=== PATIENT | male | born 1990 | race Caucasian/White ===

== ENCOUNTER 2016-10-19 15:43 | Inpatient (IN) | payer BC, OTHER ==
[~2016-10-19] VITALS: Ht 185.4 cm; Wt 79.8 kg
[~2016-10-19 15:43] MED LIST: CLON0.1T14 PO; DICY20TA28 PO; DIPH50CA37 PO; Gabapentin PO; HYDR-3895 PO; Ibuprofen PO
[2016-10-19 21:10] VITALS: BP 134/68
--- NOTE | 2016-10-19 21:10 | NUR ---
PRE-ASSESSMENT NOTE INTAKE ASSESSMENT PATIENT ALERT AND ORIENTED X 4. RESPIRATION EVEN AND UNLABORED. PATIENT ABLE TO ANSWER QUESTIONS. CLEAR SPEECH. AMBULATORY WITH STEADY GAIT. PATIENT APPEARS TO BE NOT INTOXICATED. VS BP-97.8 P-63 T-97.8 R-15 PA-0/10. SpO2 AT 98% IN RA. PATIENT STATES HE DOES NOT HAVE ALLERGY TO FOOD OR MEDICATIONS. NO SEIZURE HISTORY. HES STATES HES HERE FOR HEROIN IV AND CRYSTAL METHAMPHETAMINE. WILL CONTINUE ADMISSION PROCESS TO HIS ASSIGNED ROOM ON 3RD FLOOR. UA PROVIDED.
--- NOTE | 2016-10-19 21:15 | NUR ---
ADMISSION NOTE RECEIVED PATIENT IN THE UNIT AT THIS TIME. PATIENT IS A 25 YEAR OLD MALE WHO PRESENTS TO [facility] FOR SUPERVISED WITHDRAWAL SYMPTOMS FOR OPIATE DEPENDENCE. HEIGHT IS 61 AND WEIGHT IS 176 LBS. BODY CHECK DONE . NOTED WITH TRACK BERRY ON BOTH ARMS. NO CONTRABAND WAS FOUND. LUNGS IS CLEAR AND BOWEL SOUNDS ACTIVE ON ALL 4 QUADRANT. ABDOMEN SOFT AND NON-DISTENDED. LAST BOWEL TODAY PRIOR TO ADMISSION. NO DIFFICULTY URINATING. PATIENT REPORTS NO PAST MEDICAL HISTORY. NO SEIZURE HISTORY. PATIENT REQUESTED TO BE FULL CODE AND ON REGULAR DIET. PATIENT STATES HES HERE BECAUSE I WANT TO STOP USING, FIND OUT IF IM BIPOLAR AND CURIOUS ABOUT DEPRESSION AND ANXIETY. PATIENT LIVES WITH HIS PARENTS AND UNEMPLOYED AT THIS TIME. LONGEST PERIOD OF SOBRIETY WAS 63 DAYS LAST JUN, 2016. PATIENT IS THE SOURCE OF INFORMATION. PATIENTS DRUG OF CHOICE ARE: 1.HEROIN IV- USING SINCE HE WAS 23 YEARS OLD. PATIENT INJECTS GRAM DAILY SINCE JUNE 2016. LAST USE WAS GRAM PRIOR TO ADMISSION 2.CRYSTAL METHAMPHETAMINE (SMOKE) -USING SINCE HE WAS 24 YEARS OLD. PATIENT STATES HES USING THIS INTERMITTENTLY UNABLE TO RECALL AMOUNT. LAST USE WAS LAST WEEK FOR UNKNOWN AMOUNT TREATMENT HISTORY: 1.[facility] JUN. 2016 FOR 63 DAYS 2.[facility] JUN 15- LAST WEEK, [id number] PATIENT APPEARS TO BE ANXIOUS . YUWA 2. DENIES SI/HI. PATIENTS PCP IS DR. BEAL. PATIENTS WITHDRAWAL SYMPTOMS WHEN NOT USING ARE RESTLESS LEGS, RUNNY NOSE, TEARY EYES AND DIFFICULTY SLEEPING. PATIENT SMOKES 1 PACK DAILY. PATIENT DOES NOT HAVE HOME MEDICATIONS. WILL CALL MD AND WILL GIVE DETAIL REPORT. PATIENT ORIENTED TO SURROUNDINGS AND HOW TO USE CALL LIGHT. PATIENT WAS PLACED ON FALL PRECAUTION. SAFETY MEASURES IN PLACE. CALL LIGHT IN REACH. WILL CONTINUE TO MONITOR.
[2016-10-19] MEDS ORDERED: LOPERAMIDE HCL 2 MG CAPSULE PO PRN ×2 (21:45)
[2016-10-19] MEDS ORDERED: DICYCLOMINE HCL 20 MG TABLET PO PRN (21:45)
[2016-10-19] MEDS ORDERED: HYDROXYZINE PAMOATE 25 MG CAPSULE PO PRN (21:45)
[2016-10-19] MEDS ORDERED: MAGNESIUM HYDROXIDE 30 ML LIQUID UDC PO PRN (21:45)
[2016-10-19] MEDS ORDERED: MAG HYDROX/AL HYDROX/SIMETH 30 ML LIQUID UDC PO PRN (21:45)
[2016-10-19] MEDS ORDERED: ACETAMINOPHEN 325 MG TABLET PO PRN (21:45)
[2016-10-19] MEDS ORDERED: IBUPROFEN 400 MG TABLET PO PRN (21:45)
[2016-10-19] MEDS ORDERED: MIRALAX 17 GM POWD.PACK PO PRN (21:45)
[2016-10-19] MEDS ORDERED: CLONIDINE HCL 0.1 MG TABLET PO PRN (21:45)
[2016-10-19] MEDS ORDERED: BUPRENORPHINE HCL 2 MG TAB.SUBL SL PRN (21:45)
[2016-10-19] MEDS ORDERED: ONDANSETRON ODT 4 MG TAB.RAPDIS SL PRN (21:45)
[2016-10-19 22:13] LABS: *AMPHETAMINE, URINE POSITIVE (NEGATIVE); *BARBITURATE, URINE NEGATIVE (NEGATIVE); *CANNABINOID, URINE NEGATIVE (NEGATIVE); *COCCAINE, URINE NEGATIVE (NEGATIVE); *OPIATE, URINE POSITIVE (NEGATIVE); *PHENCYCLIDINE SCREEN,URINE NEGATIVE (NEGATIVE)
[2016-10-19 23:07] LABS: BASOPHILS # (AUTO) 0.1 K/uL (0.0-8.0); BASOPHILS % (AUTO) 1.1 % (0.0-2.0); EOSINOPHILS # (AUTO) 0.3 K/uL (0.0-0.7); EOSINOPHILS % (AUTO) 3.3 % (0.0-7.0); HEMATOCRIT 40.3 % (40-50); HEMOGLOBIN 13.8 G/DL (14.0-18.0); LYMPHOCYTES # (AUTO) 2.8 K/UL (0.8-4.8); LYMPHOCYTES % (AUTO) 27.9 % (20.5-51.5); MEAN CORPUSCULAR HEMOGLOBIN 30.6 UUG (27.0-31.0); MEAN CORPUSCULAR HGB CONC 34 g/dL (32.0-37.0); MEAN CORPUSCULAR VOLUME 89.3 FL (82.0-92.0); MONOCYTES # (AUTO) 0.5 K/UL (0.1-1.30); MONOCYTES % (AUTO) 5.4 % (0.0-11.0); NEUTROPHILS # (AUTO) 6.3 K/UL (1.8-8.9); NEUTROPHILS % (AUTO) 62.3 % (38.5-71.5); PLATELET COUNT (AUTO) 181 K/UL (150-450); RED BLOOD CELL COUNT(AUTO) 4.51 MIL/UL (4.7-6.1)
[2016-10-19 23:18] LABS: ETHANOL < 3 MG/DL (0-0)
[2016-10-19 23:20] LABS: ALANINE AMINOTRANSFERASE 22 U/L (16-63); ALKALINE PHOSPHATASE 82 U/L (50-136); ASPARTATE AMINOTRANSFERASE 14 U/L (15-37); BILIRUBIN,TOTAL 0.2 mg/dL (0.2-1.0); CARBON DIOXIDE 28 mmol/L (21-32); CHLORIDE 103 mmol/L (98-107); CREATININE 0.9 mg/dL (0.6-1.3); GLUCOSE 110 mg/dL (74-106); MAGNESIUM 1.7 mg/dL (1.8-2.4); POTASSIUM 3.9 mmol/L (3.5-5.1); TOTAL PROTEIN, SERUM 7.9 g/dL (6.4-8.2); UREA NITROGEN, BLOOD 15 mg/dL (7-18)
[2016-10-20] VITALS: BP 113/69
[2016-10-20] MEDS ORDERED: MAGNESIUM OXIDE 400 MG TABLET PO ONE
--- NOTE | 2016-10-20 00:05 | NUR ---
MAG OXIDE ADMINISTRATION/MAGNESIUM LEVEL PATIENT'S MAGNESIUM LEVEL 1.7-REPLACED WITH MAG OXIDE.
[2016-10-20 04:00] VITALS: BP 114/61
--- NOTE | 2016-10-20 07:15 | NUR ---
END OF SHIFT NOTE PATIENT HAS AN UNEVENTFUL EVENT . PATIENT IS A 25 YEAR OLD MALE, ADMITTED FOR OPIATE DEPENDENCE. PATIENT IS FULL CODE, REGULAR DIET AND NO KNOWN ALLERGY. PATIENTS MAGNESIUM LEVEL 1.7- REPLACED WITH MAGNESIUM OXIDE. PATIENT DID NOT REQUIRE ANY PRN MEDICATION DURING SHIFT. LAST COWS 1. PATIENT WAS PLACED ON FALL PRECAUTION. SAFETY MEASURES IN PLACE. CALL LIGHT IN REACH. WILL CONTINUE TO MONITOR. PATIENT SLEPT 8 HOURS. FLUID INTAKE OF 899 ML. VOIDED X 2. NO BM.
--- NOTE | 2016-10-20 07:23 | NUR ---
Start of Shift Notes: Patient received in his room. Alert and oriented x 4. Able to make needs known. Respirations even and unlabored. No SOB noted. Skin warm and dry to touch. Abdomen soft and non-distended. BS (+) in all 4 quadrants. No complains of nausea, vomiting, diarrhea or constipation noted. No complains of abdominal discomfort noted. Voids independently. Ambulatory ad sebastien with steady gait. Patient is a 25 year old male admitted for opiate and methamphetamine dependence who was placed on PRNs only at this time. MD to reassess taper. Denies any past medical hx. NKA. Full code. Regular diet. Educated patient on his current medication regimen and his current plan of care. Encouraged oral fluid intake and encouraged group participation to learn new skills to prevent relapse. Slept for 6 hours. Last COWS 1. Will continue to monitor closely.
[2016-10-20 08:00] VITALS: BP 107/52
--- NOTE | 2016-10-20 08:12 | NUR ---
MD Communication: Notified MD of patient's BP 99/53. Patient is complaining of chills, anxiety and sweats. Per MD, ok to give Clonidine as ordered. Will monitor for effectiveness.
[2016-10-20] MEDS: METHOCARBAMOL 750 MG TABLET PO PRN (08:13)
[2016-10-20] MEDS: MULTIVITAMINS,THERAPEUTIC TABLET PO SCH (08:13)
--- NOTE | 2016-10-20 08:13 | NUR ---
PRN Clonidine 0.1mg PO and Robaxin 750 mg PO given: Patient noted with complain of chills, hot flashes, muscle aches, and restless legs. COWS 4. Medicated patient with Clonidine 0.1mg PO and Robaxin 750 mg PO as ordered. Will monitor for effectiveness.
[2016-10-20] MEDS ORDERED: TUBERCULIN,PURIF.PROT.DERIV. 5 TU/0.1 ML TEST ID ONE (09:00)
--- NOTE | 2016-10-20 09:13 | NUR ---
Re-assessment: Per patient, PRN Clonidine and Robaxin were effective in reducing muscle aches and pains and less chills, anxiety and sweats noted.
[2016-10-20 12:00] VITALS: BP 123/75
[2016-10-20] MEDS: GABAPENTIN 300 MG CAPSULE PO SCH ×2 (14:04→21:11)
--- NOTE | 2016-10-20 14:04 | NUR ---
Subutex 4 mg SL given: COWS 12. Patient noted with frequent body shifting, facial flushing, elevated pulse, muscle aches and cold sweats and fatigue. Medicated patient with Subutex 4 mg SL from PRN as ordered. Will monitor for effectiveness.
--- NOTE | 2016-10-20 14:15 | NUR ---
Therapist advised client of group times. Client stated he attended morning group and will also attend afternoon group.
--- NOTE | 2016-10-20 14:34 | NUR ---
Re-assessment: COWS 7. Less flushing, hot flashes, restless legs, muscle cramps, chills and anxiety noted. PRN Subutex was effective in reducing patient's withdrawal symptoms.
[2016-10-20 16:00] VITALS: BP 117/66
--- NOTE | 2016-10-20 18:44 | NUR ---
START OF SHIFT NOTE Patient endorsed by day shift nurse. Report received. Patient is a 25 year old male admitted on 10/19/2016 to [facility] for Opioid and Meth Dependence. Patient Placed on 3 day Subutex Taper will started on 10/21/2016, which tolerated well. Patient reports NKA, is on Regular Diet, is on Full Code, placed on Fall Precautions. PMH: Anxiety, Depression, Substance Abuse, Tobacco Dependence, Insomnia. Last COWS 7 at 1600. VS remains stable. No acute events noted. Respirations is even and unlabored. Patient denies SOB and chest pain. Lungs are clear thoroughly. Abdomen is soft and non-tender. Bowel Sounds is active in all four quadrants. Last Bowel Movement was today on "10/20/2016@ 1700". Skin is intact, warm and dry to touch. Patient remains compliant for therapy, medications, and diet regimen. Encourage to attend group activities. Encourage fluids intake as tolerated. All needs met. Safety measures in the place. Call light within reach, bed is locked and in the lowest position, bed rails up x2. Will to continue to monitor closely. Addendum: 10/21/16 at 0334 by TUNDE CRABTREE RN Ordered 3 day Subutex Taper will started on 10/21/2016.
--- NOTE | 2016-10-20 18:44 | NUR ---
End of Shift Notes: Patient is a 25 year old male admitted for opiate and methamphetamine dependence who was placed on PRNs at this time. Prior to admission, patient was using 1/2 gram of Heroin and intermittent use of Crystal Meth since June 2016. VS monitored closely. No significant abnormalities noted. Withdrawal symptoms were closely monitored. Initial COWS 4 - patient presented with anxiety, restless legs, muscle cramps, chills, sweats and hot flashes. Subutex 4 mg SL given at 1404 from PRN dose due to COWS 12. Last COWS 7. Medicated patient with Clonidine and Robaxin at 0813 with help after 1 hour. Per patient, Subutex has been helping him with his withdrawal symptoms. Patient was not able to participate in group and therapy sessions. Compliant with care and treatment. Support provided. All needs met and attended. Will continue to monitor closely.
[2016-10-20 20:00] VITALS: BP 113/70
[2016-10-20] MEDS: diphenhydrAMINE 50 MG CAPSULE PO PRN (21:15)
--- NOTE | 2016-10-20 21:15 | NUR ---
PRN BENADRYL 50 MG 1CAP PO ADMINISTRATION Patient c/o insomnia. Patient's assessed. COWS 4. Patient c/o increased anxiety, agitation, nervousness, sweats, and restlessness. VS WNL. PRN Benadryl 50 mg 1 cap PO, administrated as ordered with full glass of water. All needs met. Safety measures in the place. Call light within reach, bed in the lowest position, and locked, padded bed rails up x2. Will continue to monitor closely.
[2016-10-21] VITALS: BP 123/61
[2016-10-21 04:00] VITALS: BP 101/57
--- NOTE | 2016-10-21 07:06 | NUR ---
END OF SHIFT NOTE: Patient endorsed to day shift nurse. Report given. Patient is a 25 year old male admitted on 10/19/2016 to [facility] for Opioid and Meth Dependence. Ordered 3 day Subutex Taper will started on 10/21/2016. Patient has NKA, is on Regular Diet, is on Full Code, placed on Fall Precautions. Patient reports "No Hx of Seizures". PMH: Anxiety, Depression, Substance Abuse, Tobacco Dependence, Insomnia. Withdrawal symptoms improved. Last COWS decreased from 8 to 3 at 0400. Patient presented with anxiety, agitation, restlessness, sweating, pupil size larger than normal size, and yawning. No acute events noted. VS at 0400: T: 97.8, BP: 101/57, HR: 53, O2SAT:99%; RR: 18, pain"0/10". Respirations are even and unlabored. Patient denies SOB and chest pain. Skin is intact, warm and dry to touch. PRN Benadryl 50 mg 1 cap PO for insomnia was effective. Patient remains compliant with therapy, medications, and diet regimen. Patient slept 5 hours, intake 1,091ml, voided x2. All needs met. Safety measures in the place by hospital policy: bed in the lowest position, and locked, bed rails up x2.
--- NOTE | 2016-10-21 07:07 | NUR ---
Start of Shift Notes: Patient received in his room. Alert and oriented x 4. Able to make needs known. Respirations even and unlabored. No SOB noted. Skin warm and dry to touch. Abdomen soft and non-distended. BS (+) in all 4 quadrants. No complains of nausea, vomiting, diarrhea or constipation noted. No complains of abdominal discomfort noted. Voids independently. Ambulatory ad sebastien with steady gait. Patient is a 25 year old male admitted for opiate and methamphetamine dependence who was placed on a 3-day Subutex taper as ordered which will be started today. Denies any past medical hx. NKA. Full code. Regular diet. Educated patient on his current medication regimen and his current plan of care. Encouraged oral fluid intake and encouraged group participation to learn new skills to prevent relapse. Slept for 5 hours. Last COWS 3. Will continue to monitor closely.
[2016-10-21 08:00] VITALS: BP 106/60
[2016-10-21] MEDS: GABAPENTIN 300 MG CAPSULE PO SCH ×3 (08:46→21:23)
[2016-10-21] MEDS: MULTIVITAMINS,THERAPEUTIC TABLET PO SCH (08:46)
[2016-10-21] MEDS: BUPRENORPHINE HCL 2 MG TAB.SUBL SL SCH ×2 (08:47→21:23)
[2016-10-21] MEDS ORDERED: 3 DAY TAPER BUPRENORPHINE -SERENITY PROTOCOL SL PRN (09:00)
[2016-10-21 12:00] VITALS: BP 122/66
[2016-10-21 13:09] LABS: HEPATITIS B SURFACE AG Negative (Negative)
[2016-10-21 16:00] VITALS: BP 108/75
--- NOTE | 2016-10-21 18:47 | NUR ---
End of Shift Notes: Patient is a 25 year old male admitted for opiate and methamphetamine dependence who was placed on PRNs at this time. Prior to admission, patient was using 1/2 gram of Heroin and intermittent use of Crystal Meth since June 2016. VS monitored closely. No significant abnormalities noted. Withdrawal symptoms were closely monitored. Initial COWS 8-patient presented with anxiety, restless legs, muscle cramps, chills, sweats and hot flashes.. Per patient, Subutex has been helping him with his withdrawal symptoms. Patient was not able to participate in group and therapy sessions. Compliant with care and treatment. Support provided. All needs met and attended. Will continue to monitor closely. Addendum: 10/21/16 at 1849 by JAZMINE ALBRECHT LVN Last COWS 4.
--- NOTE | 2016-10-21 19:15 | NUR ---
Start of Shift Note: Patient is a 25 y/o male admitted on 10/19/16 for Opiate dependence. Patient denies any past medical history. No seizure history noted. Fall precaution. Patient is on a regular diet with no known food and drug allergies noted. Full Code status. Patient is started today on a 3-day subutex taper and tolerating well. Patient with track calderón on both arms. Patient is alert & oriented x4. No shortness of breath noted. Respiration even & unlabored. Abdomen soft & non-distended. No nausea/vomiting noted. Patient denies pain/discomfort. Patient complains of sweating and slight anxiety. No hand tremors noted. Safety precautions are in place. Bed locked in lowest position. Both side rails up. Call light within pt's reach. Will continue to monitor patient.
[2016-10-21 20:00] VITALS: BP 147/84
[2016-10-21] MEDS: diphenhydrAMINE 50 MG CAPSULE PO PRN (22:40)
--- NOTE | 2016-10-21 22:40 | NUR ---
PRN Benadryl Patient requesting for medication to help him sleep. PRN Benadryl administered as ordered. Will continue to monitor for effectiveness.
[2016-10-22] VITALS (7 sets, daily range): BP systolic 118–132; BP diastolic 73–77
--- NOTE | 2016-10-22 01:00 | NUR ---
PRN Reassessment Patient asleep in bed and appears comfortable. No shortness of breath noted. Respiration even & unlabored. Safety measures in place. Will continue to monitor.
--- NOTE | 2016-10-22 07:32 | NUR ---
End of Shift Note: Patient had an uneventful night. Pt is a 25 y/o male admitted for Opiate dependence. Patient is on a 3-day Subutex taper and tolerating well. Patient remained stable and Vitals remains WNL. Last CIWA is 2. Pt was given PRN Benadryl for sleep and was effective. Pt slept for a total of 3 hours. Pt consumed 790 ml of fluids. Voided 2x with no bowel movement. All needs attended & met. Safety precautions are in place. Will endorse pt to day shift nurse.
--- NOTE | 2016-10-22 07:45 | NUR ---
START OF SHIFT Rcvd endorsement form ongoing nurse, client is in room, he is a/o to name , time, place and situation. Client states "I was not able to sleep last night, I felt restless." He presents with anxious mood, reports restless legs and decreased appetite, skin moist to touch, enlarged pupil. Encouraged oral fluid intake as tolerated to facilitate detox. Encouraged group participation to learn new skills to maintain sobriety. PRN Benadryl for inability to sleep, he slept 3 hrs. Subutex taper medication continues, tolerated well with no ASE. Denies any hx of withdrawal-induced seizure. NKA. Full code. Regular diet. Educated patient on his current medication regimen and his current plan of care. Slept for 5 hours. Last COWS 3. Will continue to monitor closely.
[2016-10-22] MEDS: GABAPENTIN 300 MG CAPSULE PO SCH ×3 (08:30→21:15)
[2016-10-22] MEDS: BUPRENORPHINE HCL 2 MG TAB.SUBL SL SCH ×3 (08:30→21:15)
[2016-10-22] MEDS: MULTIVITAMINS,THERAPEUTIC TABLET PO SCH (08:30)
--- NOTE | 2016-10-22 09:00 | NUR ---
TB test L F/A noted with zero induration
--- NOTE | 2016-10-22 19:15 | NUR ---
START OF SHIFT Received 25 year old male patient admitted on 10/19/16. Pt is full code with NKA. He denies any PMHx. He reports using Heroin IV 1/2 gram daily for 3 months. Last dose was 1/2 gram on 10/19/16. And Crystal Meth (smoke) of unknown amount intermittently for 3 months. Last dose was last week. Pt denies history of seizure. Pt placed on 3 day Subutex taper started on 10/21/16 and tolerating well. Per endorsement, pt did not receive or request PRN medications. He is placed on a 3 day Subutex taper started on 10/21/16 and tolerating well. Pt is alert and oriented x4, breathing is even and unlabored, safety measures in place. Will continue to monitor.
--- NOTE | 2016-10-22 19:28 | NUR ---
END OF SHIFT Endorsed client to incoming nurse, client is currently in group therapy. He had an uneventful day, he is a/o x 4, he presents with depressed mood, flat affect. Last COWS 3. 2nd of 3 day Subutex taper, tolerating well. Client was compliant with group therapy for skills to maintain sobriety. Adequate intake 2035mL, void x 5, stool x 1. Call light within reach. Safety measures rendered.
[2016-10-22] MEDS ORDERED: LORAZEPAM 1 MG TABLET ONE (22:03)
[2016-10-22] MEDS: diphenhydrAMINE 50 MG CAPSULE PO PRN (22:44)
--- NOTE | 2016-10-22 22:44 | NUR ---
PRN BENADRYL Pt complains of inability to fall asleep. PRN Benadryl administered as ordered. Breathing even and unlabored, safety measures in place. Will monitor effectiveness.
--- NOTE | 2016-10-22 23:44 | NUR ---
PRN BENADRYL REASSESSMENT PRN medication ineffective. Pt still awake, appears drowsy and reports he is ready for bed. Breathing even and unlabored, safety measures in place. Will monitor.
[2016-10-23] VITALS: BP 125/78
--- NOTE | 2016-10-23 04:00 | NUR ---
VITALS/COWS DEFERRED 0400 vitals refused. COWS deferred d/t pt lying in bed with eyes closed noted to be asleep. Respirations 16, breathing is even and unlabored, safety measures in place. Will monitor.
--- NOTE | 2016-10-23 07:02 | NUR ---
END OF SHIFT Pt is a 25 year old male patient admitted on 10/19/16. Pt is full code with NKA. He denies any PMHx. Pt continues on 3 day Subutex taper started on 10/21/16 and tolerating well. At 2244 he received PRN Benadryl. He slept a total of 5 hrs, Intake: 1080 mL, Void: x3, BM:0, COWS: 3. Pt remains alert and oriented x4, breathing is even and unlabored, safety measures in place. Endorsed to oncoming shift.
--- NOTE | 2016-10-23 07:43 | NUR ---
START OF SHIFT NOTE: Received report from date night caregiver nurse. Pt is a 25 year old male admitted on 10/19/16 for Heroin and Meth dependence. Pt is currently on a 3 day Subutex taper. Tolerating well. Color good, skin warm and dry. Respirations even and unlabored. Resting in bed. Safety precautions observed. Call light within reach. Will continue to monitor.
[2016-10-23 08:00] VITALS: BP 107/56
[2016-10-23] MEDS: MULTIVITAMINS,THERAPEUTIC TABLET PO SCH (08:31)
[2016-10-23] MEDS: GABAPENTIN 300 MG CAPSULE PO SCH ×3 (08:31→20:32)
--- NOTE | 2016-10-23 08:33 | NUR ---
VSS COWS 2. Pt states "Subutex really works."
[2016-10-23] MEDS ORDERED: BUPRENORPHINE HCL 2 MG TAB.SUBL SL SCH (09:00)
[2016-10-23 12:40] VITALS: BP 125/73
[2016-10-23 15:08] LABS: *AMPHETAMINE, URINE NEGATIVE (NEGATIVE); *BARBITURATE, URINE NEGATIVE (NEGATIVE); *CANNABINOID, URINE NEGATIVE (NEGATIVE); *COCCAINE, URINE NEGATIVE (NEGATIVE); *OPIATE, URINE NEGATIVE (NEGATIVE); *PHENCYCLIDINE SCREEN,URINE NEGATIVE (NEGATIVE)
[2016-10-23 16:00] VITALS: BP 142/71
--- NOTE | 2016-10-23 17:00 | NUR ---
VSS COWS 2
--- NOTE | 2016-10-23 18:36 | NUR ---
END OF SHIFT NOTE: Report given to warehouse supervisor 3rd shift nurse . Pt is a 25 year old male admitted on 10/19/16 for Heroin and Meth dependence. Pt completed a 3 day Subutex taper. To be discharged in AM. Color good, skin warm and dry. Respirations even and unlabored. Vital signs have remained stable throughout shift. Last COWS 2 @ 1700. No prn medications administered. Safety precautions observed. Call light within reach.
[2016-10-23 20:00] VITALS: BP 137/81
--- NOTE | 2016-10-23 20:00 | NUR ---
START OF SHIFT NOTE PATIENT ALERT AND ORIENTED X 4. RESPIRATION EVEN AND UNLABORED. PATIENT REPORTS RESTLESS LEGS. NO N/V, NO ANXIETY. RECEIVED REPORT FROM DAY SHIFT NURSE. PATIENT IS A 25 YEAR OLD MALE , ADMITTED FOR OPIATE/CRYSTAL METH DEPENDENCE. PATIENT IS FULL CODE, REGULAR DIET AND NO KNOWN ALLERGY. PATIENT COMPLETED 3 DAY SUBUTEX TAPER. PATIENT IS MEDICALLY CLEARED TO BE DISCHARGE TOMORROW. UPON ADMISSION, PATIENT'S DRUG CHOICE ARE HEROIN IV 1/2 GRAM SINCE JUNE 2016 AND CRYSTAL METH (SMOKE) FOR UNKNOWN AMOUNT INTERMITTENTLY SINCE JUNE 2016. PATIENT REPORTS NO PAST MEDICAL HISTORY. NO SEIZURE HISTORY. PATIENT DID NOT REQUIRE ANY PRN MEDICATION DURING THE DAY. LAST COWS 2. SAFETY MEASURES IN PLACE. CALL LIGHT IN REACH. WILL CONTINUE TO MONITOR.
[2016-10-23] MEDS: METHOCARBAMOL 750 MG TABLET PO PRN (20:32)
--- NOTE | 2016-10-23 20:32 | NUR ---
PRN ROBAXIN ADMINISTRATION PATIENT C/O RESTLESS LEGS. PRN ROBAXIN GIVEN. WILL MONITOR FOR EFFECTIVENESS
--- NOTE | 2016-10-23 21:32 | NUR ---
PRN ANGELIQUE RE-ASSESSMENT PATIENT STATES ROBAXIN IS HELPFUL WITH HIS RESTLESS LEGS, IT SUBSIDED. WILL CONTINUE TO MONITOR
[2016-10-23] MEDS: diphenhydrAMINE 50 MG CAPSULE PO PRN (22:24)
--- NOTE | 2016-10-23 22:24 | NUR ---
PRN BENADRYL ADMINISTRATION PATIENT C/O UNABLE TO SLEEP. PRN BENADRYL GIVEN. WILL MONITOR FOR EFFECTIVENESS
--- NOTE | 2016-10-23 23:46 | NUR ---
PRN VISTARIL ADMINISTRATION PATIENT STILL UNABLE TO SLEEP AND ANXIOUS. PRN VISTARIL GIVEN. WILL CONTINUE TO MONITOR
[2016-10-24] VITALS: BP 128/74
--- NOTE | 2016-10-24 00:30 | NUR ---
EMILIANO MORENO RE-ASSESSMENT PATIENT IN BED ASLEEP. RESPIRATION EVEN AND UNLABORED. NO S/S OF DISTRESS. SAFETY MEASURES IN PLACE. CALL LIGHT IN REACH. WILL CONTINUE TO MONITOR.
--- NOTE | 2016-10-24 00:46 | NUR ---
PRN VISTARIL RE-ASSESSMENT PATIENT IN BED ASLEEP. RESPIRATION EVEN AND UNLABORED. NO S/S OF DISTRESS. SAFETY MEASURES IN PLACE. CALL LIGHT IN REACH. WILL CONTINUE TO MONITOR.
[2016-10-24 04:00] VITALS: BP 127/81
--- NOTE | 2016-10-24 07:20 | NUR ---
END OF SHIFT NOTE PATIENT REMAIN ALERT AND ORIENTED X 4. RESPIRATION EVEN AND UNLABORED. PATIENT REPORTED RESTLESS LEGS. NO N/V, NO ANXIETY. RECEIVED REPORT FROM DAY SHIFT NURSE. PATIENT IS A 25 YEAR OLD MALE , ADMITTED FOR OPIATE/CRYSTAL METH DEPENDENCE. PATIENT IS FULL CODE, REGULAR DIET AND NO KNOWN ALLERGY. PATIENT COMPLETED 3 DAY SUBUTEX TAPER. PATIENT IS MEDICALLY CLEARED TO BE DISCHARGE TODAY. UPON ADMISSION, PATIENT'S DRUG CHOICE ARE HEROIN IV 1/2 GRAM SINCE JUNE 2016 AND CRYSTAL METH (SMOKE) FOR UNKNOWN AMOUNT INTERMITTENTLY SINCE JUNE 2016. PATIENT REPORTS NO PAST MEDICAL HISTORY. NO SEIZURE HISTORY. PATIENT WAS GIVEN PRN BENADRYL AND VISTARIL DURING SHIFT. LAST COWS 0 . SAFETY MEASURES IN PLACE. CALL LIGHT IN REACH. WILL CONTINUE TO MONITOR. SLEPT 5 HOURS. FLUID INTAKE 1,500 ML. VOIDED X 2. BM X 1.
--- NOTE | 2016-10-24 07:30 | NUR ---
start of shift note: received pt from maintenance technician 2nd shift nurse. pt is in stable condition at this time no s/s of pain or discomfort. pt is admitted to [facility] for opiate/meth withdrawal/dependence. pts last cows 1. will assist pt in discharging and will continue to monitor pt for any changes
[2016-10-24] MEDS ORDERED: HYDR-3895 PO (09:29)
[2016-10-24] MEDS ORDERED: METH-406 PO (09:29)
[2016-10-24] MEDS: MULTIVITAMINS,THERAPEUTIC TABLET PO SCH (09:46)
[2016-10-24] MEDS: GABAPENTIN 300 MG CAPSULE PO SCH (09:46)
--- NOTE | 2016-10-24 10:39 | NUR ---
discharge note: pt left the unit in stable condition no s/s of pain or discomfort or any withdrawal symptoms. pt teaching administered and pt verbalized understanding. all personal belongings were returned and V/S WNL. PT WILL BE TRANSFERRED TO [facility] VIA PRIVATE CAR
== END 2016-10-24 10:31 | disposition other institution (70) | DRG 895 ==
LOC: SRC 20:49
PROVIDERS: ADMIT Internal Medicine; ATTEND Internal Medicine
PROC: HZ2ZZZZ Detoxification Services for Substance Abuse Treatment (ICD-10-PCS; principal; 2016-10-19)
PROC: HZ31ZZZ Individual Counseling for Substance Abuse Treatment, Behavioral (ICD-10-PCS; 2016-10-20)
PROC: HZ41ZZZ Group Counseling for Substance Abuse Treatment, Behavioral (ICD-10-PCS; 2016-10-20)
DX: F11.23 Opioid dependence with withdrawal (principal); F15.10 Other stimulant abuse, uncomplicated; F13.10 Sedative, hypnotic or anxiolytic abuse, uncomplicated; F12.90 Cannabis use, unspecified, uncomplicated; F41.9 Anxiety disorder, unspecified; F32.9 Major depressive disorder, single episode, unspecified
CPT/HCPCS: 36415; 70030-TC; 80307; 80324; 80361; 83735; 85025; 86580; 86705; 87340; 87806; A4663; G0480; Q0163